=== PATIENT | male | born 1990 ===

== ENCOUNTER 2017-08-06 12:41 | Emergency (ER) | payer MEDICAID ==
[~2017-08-06] VITALS: Ht 170.2 cm; Wt 93.0 kg
[2017-08-06 12:43] VITALS: BP 141/94; PULSE 86; RESP 14; TEMP 98.8; O2SAT 97
--- NOTE | 2017-08-06 12:47 | PD ---
Physical Exam Time Seen by Provider: 12:46 Narrative 26-year-old male with complaint of vomiting, diarrhea, upper abdominal pain since Saturday. Denies fevers. Patient seen in triage. Vital signs reviewed. Patient taken to medical bed. Data Data Last Documented VS Vital Signs Date Time Temp Pulse Resp B/P (MAP) Pulse Ox O2 Delivery O2 Flow Rate FiO2 08/06/17 12:43 98.8 86 14 141/94 (110) 97 MDM Supervised Visit with ISAÍAS: Francia Escobedo Aug 06, 2017 12:47
[2017-08-06 13:02] VITALS: BP 144/94; PULSE 90; RESP 16; O2SAT 99
[2017-08-06] MEDS ORDERED: SODIUM CHLOR 0.9% 1000 ML INJ 1,000 ML IV SCH (13:04)
--- NOTE | 2017-08-06 13:08 | PD ---
HPI Chief Complaint: Abdominal Pain Time Seen by Provider: 12:55 Travel History International Travel<30 days: No Contact w/Intl Traveler<30days: No Traveled to known affect area: No History of Present Illness HPI 26 year male presents to the emergency department for evaluation of nausea, vomiting, diarrhea that started on Saturday morning. Patient states he had multiple episodes of diarrhea and vomiting yesterday. However, today, he has had one bowel movement and no vomiting. Patient states that he will get a slight headache that is in various places and then he will have the urge to go to the bathroom and sometimes will vomit afterwards. Patient denies any fevers or chills. Patient reports no chronic medical problems and takes no prescribed medications. He states he has not drank alcohol in approximately 2-3 months. He has not tried anything [id number] for his symptoms. He has not had any abdominal surgeries before. No other complaints. PFSH Past Medical History Asthma: Yes Influenza Vaccination: No ?: Not Past Surgical History Surgical History: No Previous Surgery Social History Alcohol Use: No (RECENTLY QUIT) Tobacco Use: No Substance Use: Yes (MARIJUANA) Allergies-Medications (Allergen,Severity, Reaction): Coded Allergies: No Known Allergies (Unverified , 08/06/17) Reported Meds & Prescriptions Reported Meds & Active Scripts Active Imodium A-D (Loperamide HCl) 2 Mg Capsule 2 Mg PO Q6H PRN Ondansetron Odt 4 Mg Tab 4 Mg SL Q6HR PRN Review of Systems Except as stated in HPI: all other systems reviewed are Neg Physical Exam Narrative GENERAL: Well-nourished, well-developed male patient, ambulatory. Afebrile. SKIN: Focused skin assessment warm/dry. HEAD: Normocephalic. Atraumatic EYES: No scleral icterus. No injection or drainage. NECK: Supple, trachea midline. No JVD or lymphadenopathy. CARDIOVASCULAR: Regular rate and rhythm without murmurs, gallops, or rubs. RESPIRATORY: Breath sounds equal bilaterally. No accessory muscle use. Lungs sounds are clear to auscultation GASTROINTESTINAL: Abdomen soft, non-tender, nondistended. MUSCULOSKELETAL: No cyanosis, or edema. BACK: Nontender without obvious deformity. No CVA tenderness. Data Data Last Documented VS Vital Signs Date Time Temp Pulse Resp B/P (MAP) Pulse Ox O2 Delivery O2 Flow Rate FiO2 08/06/17 13:02 90 16 144/94 (111) 99 Room Air 08/06/17 12:43 98.8 Orders Orders Complete Blood Count With Diff (08/06/17 13:04) Comprehensive Metabolic Panel (08/06/17 13:04) Lipase (08/06/17 13:04) Urinalysis - C+S If Indicated (08/06/17 13:04) Iv Access Insert/Monitor (08/06/17 13:04) Ecg Monitoring (08/06/17 13:04) Oximetry (08/06/17 13:04) Ondansetron Inj (Zofran Inj) (08/06/17 13:15) Sodium Chlor 0.9% 1000 Ml Inj (Ns 1000 M (08/06/17 13:04) Sodium Chloride 0.9% Flush (Ns Flush) (08/06/17 13:15) Labs Laboratory Tests Test 08/06/17 13:15 08/06/17 13:58 White Blood Count 8.7 TH/MM3 Red Blood Count 5.34 MIL/MM3 Hemoglobin 15.7 GM/DL Hematocrit 46.0 % Mean Corpuscular Volume 86.0 FL Mean Corpuscular Hemoglobin 29.4 PG Mean Corpuscular Hemoglobin Concent 34.2 % Red Cell Distribution Width 13.3 % Platelet Count 214 TH/MM3 Mean Platelet Volume 8.7 FL Neutrophils (%) (Auto) 56.9 % Lymphocytes (%) (Auto) 28.1 % Monocytes (%) (Auto) 10.6 % Eosinophils (%) (Auto) 3.7 % Basophils (%) (Auto) 0.7 % Neutrophils # (Auto) 4.9 TH/MM3 Lymphocytes # (Auto) 2.4 TH/MM3 Monocytes # (Auto) 0.9 TH/MM3 Eosinophils # (Auto) 0.3 TH/MM3 Basophils # (Auto) 0.1 TH/MM3 CBC Comment DIFF FINAL Differential Comment Blood Urea Nitrogen 9 MG/DL Creatinine 0.83 MG/DL Random Glucose 93 MG/DL Total Protein 7.8 GM/DL Albumin 3.8 GM/DL Calcium Level 8.7 MG/DL Alkaline Phosphatase 72 U/L Aspartate Amino Transf (AST/SGOT) 13 U/L Alanine Aminotransferase (ALT/SGPT) 31 U/L Total Bilirubin 0.4 MG/DL Sodium Level 138 MEQ/L Potassium Level 3.6 MEQ/L Chloride Level 106 MEQ/L Carbon Dioxide Level 26.1 MEQ/L Anion Gap 6 MEQ/L Estimat Glomerular Filtration Rate 112 ML/MIN Lipase 80 U/L Urine Color YELLOW Urine Turbidity CLEAR Urine pH 5.5 Urine Specific [place] 1.013 Urine Protein NEG mg/dL Urine Glucose (UA) NEG mg/dL Urine Ketones NEG mg/dL Urine Occult Blood NEG Urine Nitrite NEG Urine Bilirubin NEG Urine Urobilinogen LESS THAN 2.0 MG/DL Urine Leukocyte Esterase NEG Urine WBC LESS THAN 1 /hpf Urine Mucus FEW /lpf Microscopic Urinalysis Comment CULT NOT INDICATED MDM Medical Decision Making Medical Screen Exam Complete: Yes Emergency Medical Condition: Yes Medical Record Reviewed: Yes Differential Diagnosis Gastroenteritis versus viral syndrome versus UTI versus pancreatitis Narrative Course 26 year male presents to the emergency department for evaluation of vomiting, diarrhea that has been ongoing since Saturday morning. Patient reports one bowel movement today and no episodes of vomiting today. He does appear well on exam. IV access established. CBC, CMP, lipase, UA are ordered and pending. Patient is given normal saline 1 L IV bolus, Zofran 4 mg IV. CBC shows no acute abnormality. CMP is unremarkable. Lipase is 80. UA is negative for acute infection. Patient has had any episodes of vomiting or diarrhea since being in the emergency department. He states he feels well on my reexamination is watching movies on his cell phone. Patient will be discharged with a prescription for Zofran and Imodium. He is to follow-up with primary care physician. He is to return here for any acute worsening of symptoms. Patient verbalizes agreement and understanding. The patient was discharged in stable condition with instructions, including return instructions and follow up instructions. Diagnosis Primary Impression: Gastroenteritis Referrals: Primary Care Physician call for appointment Patient Instructions: Gastroenteritis (ED), General Instructions Additional Instructions: Take Zofran as instructed as needed for nausea/vomiting. Take Imodium as started as needed for diarrhea. [place] diet. Drink plenty of fluids. Follow-up with your primary care physician. Return to the emergency department for any acute worsening of symptoms. Med/Other Pt SpecificInfo: Prescription(s) given Scripts Loperamide (Imodium A-D) 2 Mg Capsule 2 MG PO Q6H Y for DIARRHEA, #30 CAP 0 Refills Prov: Skye Jacobson 08/06/17 Ondansetron Odt (Ondansetron Odt) 4 Mg Tab 4 MG SL Q6HR Y for Nausea/Vomiting, #12 TAB 0 Refills Prov: Skye Jacobson 08/06/17 Disposition: 01 DISCHARGE HOME Condition: Stable Skye Jacobson Aug 06, 2017 13:08
[2017-08-06] MEDS ORDERED: ONDANSETRON HCL 4 MG/2 ML VIAL IVP ONE (13:15)
[2017-08-06] MEDS ORDERED: SODIUM CHLORIDE 0.9% FLUSH 10 ML FLUSH IV FLUSH PRN (13:15)
[2017-08-06 13:35] LABS: AUTOMATED NEUTROPHIL # 4.9 TH/MM3 (1.8-7.7); BASOPHIL # 0.1 TH/MM3 (0-0.2); BASOPHIL % 0.7 % (0.0-2.0); EOSINOPHIL # 0.3 TH/MM3 (0-0.4); EOSINOPHIL % 3.7 % (0.0-4.0); HEMO FLAGS DIFF FINAL; LYMPH % 28.1 % (9.0-44.0); LYMPHOCYTE # 2.4 TH/MM3 (1.0-4.8); MEAN CORPUSCULAR HEMOGLOBIN 29.4 PG (27.0-34.0); MEAN CORPUSCULAR HGB CONC 34.2 % (32.0-36.0); MONO % 10.6 % (0.0-8.0); NEUT % 56.9 % (16.0-70.0); PLATELET COUNT 214 TH/MM3 (150-450); RED BLOOD COUNT 5.34 MIL/MM3 (4.50-5.90); RED CELL DISTRIBUTION WIDTH 13.3 % (11.6-17.2); WHITE BLOOD COUNT 8.7 TH/MM3 (4.0-11.0)
[2017-08-06 14:09] LABS: ALT (GPT) 31 U/L (12-78); ANION GAP 6 MEQ/L (5-15); AST (GOT) 13 U/L (15-37); BICARBONATE 26.1 MEQ/L (21.0-32.0); BLOOD UREA NITROGEN 9 MG/DL (7-18); CHLORIDE 106 MEQ/L (98-107); GLOMERULAR FILTRATION RATE 112 ML/MIN (>89); POTASSIUM 3.6 MEQ/L (3.5-5.1); SODIUM (NA) 138 MEQ/L (136-145)
--- NOTE | 2017-08-06 14:11 | PD ---
Data Data Last Documented VS Vital Signs Date Time Temp Pulse Resp B/P (MAP) Pulse Ox O2 Delivery O2 Flow Rate FiO2 08/06/17 13:02 90 16 144/94 (111) 99 Room Air 08/06/17 12:43 98.8 Orders Orders Complete Blood Count With Diff (08/06/17 13:04) Comprehensive Metabolic Panel (08/06/17 13:04) Lipase (08/06/17 13:04) Urinalysis - C+S If Indicated (08/06/17 13:04) Iv Access Insert/Monitor (08/06/17 13:04) Ecg Monitoring (08/06/17 13:04) Oximetry (08/06/17 13:04) Ondansetron Inj (Zofran Inj) (08/06/17 13:15) Sodium Chlor 0.9% 1000 Ml Inj (Ns 1000 M (08/06/17 13:04) Sodium Chloride 0.9% Flush (Ns Flush) (08/06/17 13:15) Labs Laboratory Tests Test 08/06/17 13:15 White Blood Count 8.7 TH/MM3 Red Blood Count 5.34 MIL/MM3 Hemoglobin 15.7 GM/DL Hematocrit 46.0 % Mean Corpuscular Volume 86.0 FL Mean Corpuscular Hemoglobin 29.4 PG Mean Corpuscular Hemoglobin Concent 34.2 % Red Cell Distribution Width 13.3 % Platelet Count 214 TH/MM3 Mean Platelet Volume 8.7 FL Neutrophils (%) (Auto) 56.9 % Lymphocytes (%) (Auto) 28.1 % Monocytes (%) (Auto) 10.6 % Eosinophils (%) (Auto) 3.7 % Basophils (%) (Auto) 0.7 % Neutrophils # (Auto) 4.9 TH/MM3 Lymphocytes # (Auto) 2.4 TH/MM3 Monocytes # (Auto) 0.9 TH/MM3 Eosinophils # (Auto) 0.3 TH/MM3 Basophils # (Auto) 0.1 TH/MM3 CBC Comment DIFF FINAL Differential Comment MDM Supervised Visit with ISAÍAS: Yes Narrative Course The history, exam, and medical decision-making in the associated mid-level provider note were completed with my assistance. I reviewed and agree with the findings presented. I attest that I had a [id number] encounter with the patient on the same day, and personally performed and documented my assessment and findings in the medical record. *My assessment and Findings: 26-year-old man, N/V/D, benign abdominal exam. Looks well. Recommend supportive treatment. Scripts No Active Prescriptions or Reported Meds Pelon Sparks MD Aug 06, 2017 14:10
[2017-08-06 14:12] LABS: ALKALINE PHOSPHATASE 72 U/L (45-117); TOTAL BILIRUBIN ADULT 0.4 MG/DL (0.2-1.0)
[2017-08-06 14:29] LABS: BLOOD, URINE NEG (NEG); COMMENT (UR) CULT NOT INDICATED; CULTURE IF INDICATED CULT NOT INDICATED; GLUCOSE,URINE NEG (NEG); KETONE, URINE NEG (NEG); MUCUS URINE FEW /lpf (OCC); NITRITE,URINE NEG (NEG); PH, URINE 5.5 (5.0-8.5); URINE COLOR YELLOW (YELLW/STRAW)
[2017-08-06] MEDS ORDERED: LOPE-1 PO (14:39)
[2017-08-06] MEDS ORDERED: ONDA4TAB7 SL (14:39)
== END 2017-08-06 15:26 | disposition home or self-care (01) ==
LOC: NEPD 12:41
DX: K52.9 Noninfective gastroenteritis and colitis, unspecified (principal); J45.909 Unspecified asthma, uncomplicated
CPT/HCPCS: 80053; 81001; 83690; 85025; 96361; 96374; 99284; J2405; J7030